=== PATIENT | female | born 1990 | race Caucasian/White ===

== ENCOUNTER 2020-09-05 18:57 | Emergency (ER) | payer OTHER, SELFPAY ==
[2020-09-05 19:11] VITALS: BP 111/60; PULSE 87; RESP 18; O2SAT 99; BMI 40.4
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
[2020-09-05 20:20] VITALS: BP 116/71; PULSE 87; RESP 18; O2SAT 95
[2020-09-05] MEDS: LIDOCAINE/PRILOCAINE 5 GM TOP (20:43)
[2020-09-05] MEDS: BACITRACIN OINT 0.9 GM PCKT 1 APPLIC TOP (20:44)
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
== END 2020-09-05 21:13 | disposition home or self-care (01) ==
PROVIDERS: Emergency Provider Nurse Practitioner Family
DX: T23.212A Burn of second degree of left thumb (nail), initial encounter (principal); X17.XXXA Contact with hot engines, machinery and tools, initial encounter
CPT/HCPCS: 99282

== ENCOUNTER 2025-11-07 18:01 | Emergency (ER) | payer OTHER, SELFPAY ==
[2025-11-07 18:11] VITALS: BP 133/87; PULSE 70; RESP 17; TEMP 36.1; O2SAT 98; BMI 39.4
[2025-11-07 18:50] LABS: Alanine Aminotransferase 82 IU/L (<35); Albumin 4.5 g/dL (3.5-5.0); Albumin Globulin Ratio 1.6 (1.0-2.8); Alkaline Phosphatase 113 U/L (38-126); Blood Urea Nitrogen 12 mg/dL (7-17); Calcium 9.3 mg/dL (8.4-10.2); Carbon Dioxide 28 mmol/L (22-32); Chloride 102 mmol/L (98-107); Estimated Glomerular Filt Rate > 60 mL/min (>60); Globulin 2.9 g/dL (1.7-4.1); Glucose 97 mg/dL (70-99); HEMOLYSIS < 15 (0-50); Lipase 127 U/L (23-300); Potassium 3.5 mmol/L (3.4-5.1); Sodium 138 mmol/L (137-145); Total Protein 7.4 g/dL (6.3-8.2)
[2025-11-07 18:53] LABS: Add Manual Diff / Slide Review NO; Hematocrit 39.7 % (36-46); Hemoglobin 13.4 g/dL (12.0-16.0); Lymphocytes Absolute Auto 2100 /uL (1100-4500); Mean Corpuscular HGB Conc 33.7 % (30-36); Mean Corpuscular Hemoglobin 28.9 PG (26-34); Mean Corpuscular Volume 85.6 fL (80-100); Platelet Count 221 X10^3/uL (150-400)
[2025-11-07 20:11] VITALS: BP 111/68; PULSE 85; O2SAT 98
[2025-11-07 21:17] VITALS: O2SAT 98
--- NOTE | 2025-11-07 23:20 | ED_ITS ---
HPI - Abdominal Pain General Chief Complaint: Abdominal Pain Stated Complaint: 4 wks pp, sharp abd pain, back pain Time Seen by Provider: 11/07/25 18:56 History of Present Illness HPI narrative: 35-year-old female now four weeks from vaginal delivery of term viable female infant, was standing this evening and had sudden onset of lower abdominal pain that radiates straight back. Contractions like sensation. No vaginal bleeding at that time. No fevers or chills. No chest pain shortness of breath, no palpitation or irregular heart rate fast heart rate sensation. No focal weakness to face arm or leg. No focal numbness to face arm or leg. She was able to remain standing, did not feel particularly weak in the knees at the time. Symptoms were transient, not relieved with any specific maneuver or medications. Related Data Home Medications ?Medication ?Instructions ?Recorded ?Confirmed vitamins with calcium 1 tab PO DAILY 02/25/25 07/15/25 no.72-iron 27 mg-folic acid 1 mg tablet (M- Plus) Allergies Allergy/AdvReac Type Severity Reaction Status Date / Time hydrocodone (From Lortab) AdvReac Intermediate Depression Verified 11/07/25 18:11 Patient History Medical History Exercise-induced asthma Facet arthropathy, lumbar Gallstone Herniated nucleus pulposus, C5-6 left Surgical History No pertinent past surgical history Social History Smoking Status: Never smoker Smoking Status: Never smoker alcohol intake frequency: 0-2 drinks per day Exam Narrative Exam Narrative: GENERAL: Well-developed patient, in mild distress. HEAD: Atraumatic. Normocephalic. EYES: Pupils equal round and reactive. Extraocular motions intact. No scleral icterus. No injection or drainage. ENT: Nose without bleeding, purulent drainage. Throat without erythema, tonsillar hypertrophy or exudate. Airway patent. NECK: Trachea midline. Non tender CARDIOVASCULAR: Regular rate and rhythm without murmurs, gallops, or rubs. RESPIRATORY: Clear to auscultation. Breath sounds equal bilaterally. No wheezes, rales, or rhonchi. GASTROINTESTINAL: Abdomen soft, non-tender, nondistended. EXTREMITIES: No edema or joint tenderness. BACK: Nontender without deformity or crepitance. No flank tenderness. NEURO: AOx3. Motor functions grossly nonfocal. SKIN: No rash or erythema of visible areas Initial Vital Signs Initial Vital Signs: Vital Signs Temperature 97.0 F L 11/07/25 18:11 Pulse Rate 70 11/07/25 18:11 Respiratory Rate 17 11/07/25 18:11 Blood Pressure 133/87 11/07/25 18:11 Pulse Oximetry 98 11/07/25 18:11 Oxygen Delivery Method Room Air 11/07/25 18:11 Course Orders Ordered: ED Orders 11/07/25 23:48 US pelvic complete Stat Discontinued Medications Ondansetron HCl (Ondansetron 4 Mg/2 Ml Inj) 4 mg IV NOW PRN PRN Reason: Nausea And Vomiting Ondansetron HCl (Ondansetron 4 Mg Odt) 4 mg PO NOW PRN PRN Reason: Nausea And Vomiting Vital Signs Vital signs: Vital Signs - 8 hr 11/07/25 20:11 11/07/25 20:11 11/07/25 21:17 Pulse Rate 85 Respiratory Rate Blood Pressure 111/68 Pulse Oximetry 98 98 Oxygen Delivery Method 11/07/25 23:45 11/07/25 23:45 11/07/25 23:49 Pulse Rate 79 79 Respiratory Rate 20 Blood Pressure 120/73 120/73 Pulse Oximetry 99 99 Oxygen Delivery Method Room Air 11/08/25 02:26 11/08/25 02:26 Pulse Rate 81 Respiratory Rate Blood Pressure 108/67 Pulse Oximetry 98 Oxygen Delivery Method MDM - Abdominal Pain Lab Data Attestation: I reviewed the patient's lab results. Lab results narrative: White blood cell count 6400, hemoglobin 13.4, platelets adequate. Glucose 97. Normal renal function, serum CO2, electrolytes. Mild transaminitis, with normal total bilirubin and alkaline phosphatase. Lipase normal. Urine hCG negative. Urine dip negative. 11/07/25 18:25 11/07/25 18:25 Labs: Lab Results 11/07/25 Range/Units 18:25 WBC 6.4 (4.5-11.0) X10^3/uL RBC 4.64 (4.0-5.2) X10^6/uL Hgb 13.4 (12.0-16.0) g/dL Hct 39.7 (36-46) % MCV 85.6 (80-100) fL MCH 28.9 (26-34) PG MCHC 33.7 (30-36) % RDW 13.9 (11.6-14.8) % Plt Count 221 (150-400) X10^3/uL Neut % (Auto) 57.9 (50-75) % Lymph % (Auto) 33.1 (25-40) % [place] % (Auto) 6.6 (3-14) % Eos % (Auto) 1.4 L (2-4) % Baso % (Auto) 1.0 (0-2) % Neut # (Auto) 3700 (9314-8536) /uL Lymph # (Auto) 2100 (7816-5494) /uL [place] # (Auto) 400 (0-900) /uL Eos # (Auto) 100 (0-450) /uL Baso # (Auto) 100 (0-100) /uL Sodium 138 (137-145) mmol/L Potassium 3.5 (3.4-5.1) mmol/L Chloride 102 (98-107) mmol/L Carbon Dioxide 28 (22-32) mmol/L BUN 12 (7-17) mg/dL Creatinine 0.69 (0.52-1.04) mg/dL Estimated GFR > 60 (>60) mL/min BUN/Creatinine Ratio 17.4 (6-22) Glucose 97 (70-99) mg/dL Calcium 9.3 (8.4-10.2) mg/dL Total Bilirubin 0.8 (0.2-1.3) mg/dL AST 48 H (14-36) IU/L ALT 82 H (<35) IU/L Alkaline Phosphatase 113 (38-126) U/L Total Protein 7.4 (6.3-8.2) g/dL Albumin 4.5 (3.5-5.0) g/dL Globulin 2.9 (1.7-4.1) g/dL Albumin/Globulin Ratio 1.6 (1.0-2.8) Lipase 127 (23-300) U/L HCG, Quant < 2.39 mIU/mL Point of care testing: Point of Care Testing Test Results Negative Urine Dip Bedside Urine Glucose Negative Bedside Urine Bilirubin - Negative Bedside Urine Ketone - Negative Urine Specific Cass 1.015 Bedside Urine Occult Blood - Negative Bedside Urine pH 6.0 Bedside Urine Protein - Negative Bedside Urine Urobilinogen - Negative Bedside Urine Nitrite - Negative Bedside Urine Leukocytes - Negative Esterase Imaging Data Ultrasound pelvis: Radiologist's Impression: [address] [address] Ultrasound Report Signed Patient: Ghazal Beltran MR#: [id number] : 1990 Acct:[id number] Age/Sex: 35 / F Date of Service: 11/07/25 Loc: ED Accession Number: [id number] Procedure: US pelvic complete Ordering Provider: Jr Rhodes MD PROCEDURE: US PELVIC COMPLETE INDICATIONS: lower abdom pain, now hvaing vaginal bleeding TECHNIQUE: Real-time scanning was performed of the pelvic organs, with image documentation. Additional endovaginal scanning was necessary due to incomplete visualization of the adnexal and endometrial structures by transabdominal scanning. COMPARISON: None. FINDINGS: Uterus: Uterus is anteverted and normal in size at 8.9 x 5.5 x 7.5 cm. The myometrium is homogeneous. The endometrium measures 6.7 mm combined thickness. No findings of retained products of conception in the endometrium. The cervix appears closed with small nabothian cyst present. Ovaries: The right ovary measures 1.4 x 3.3 x 1.7 cm, with a calculated ovarian volume of 3.7 cc. The left ovary measures 1.7 x 2.7 x 1.4 cm, with a calculated ovarian volume of 3.3 cc. The ovaries have a normal sonographic appearance. Less than 12 follicles can be seen in each ovary. No adnexal masses are seen. Other: No pathologic free abdominal or pelvic fluid. IMPRESSION: Normal pelvic ultrasound. We strive to produce accurate, complete, and clear reports of imaging services. To assist us in improving patient care, this report was composed using standard report templates and voice recognition software. Therefore, it may contain abnormal punctuation, insertions and/or omissions. Occasional wrong-word or sound-alike substitutions may occur. Though we review the report and make efforts to correct it, we do recommend that the report be read carefully in proper context to recognize any text inaccuracies. Dictated by: Catia Alex M.D. on 11/08/2025 at 1:38 Approved by: Catia Alex M.D. on 11/08/2025 at 1:40 MDM Narrative Medical decision making narrative: 35-year-old female 4 weeks from vaginal delivery it sounded like it went well, had lower abdominal pain acute onset while standing, radiation straight back, symptoms seemed to be resolved. Afebrile, sirs screen negative. No midline tenderness or flank area tenderness. Screening labs pending. Lab data: White blood cell count 6400, hemoglobin 13.4, platelets adequate. Glucose 97. Normal renal function, serum CO2, electrolytes. Mild transaminitis, with normal total bilirubin and alkaline phosphatase. Lipase normal. Urine hCG negative. Urine dip negative. Patient had some vaginal bleeding after lab draw, that seems to have stopped. We will check pelvic ultrasound. Pelvic ultrasound showed no acute changes. See radiology report. We discussed further advanced imaging such as CT scan abdomen and pelvis, declined for now. Follow up with PCP advised this next week if symptoms recur. Discharged home with family. Return precautions discussed. Discharge Plan Departure Patient Disposition: Home Clinical Impression: Abdominal pain Activity Restrictions/Additional Instructions: Lower abdominal pain acute onset 5:00 p.m. while standing cooking, radiation straight back at the time, sharp then increased, radiating toward the buttocks, resolved without specific treatment. History of passing-out episodes in association with pain. No passing out but has sensation that you might pass out tonight. Four weeks now, on complicated vaginal delivery at [facility] reported. You did have some light vaginal bleeding that started while your here in the emergency department. test negative. Ultrasound of the pelvis showed no acute changes. You had resolution of your symptoms without specific treatments. We did discuss additional advanced imaging in the might include CT abdomen and pelvis, hold for now. Recheck advised with your regular doctor early this next week. Continue taking your chronic medications for now. Return to this/nearest emergency department for any change worsening symptoms or any concerns prior. Prescriptions: No Action M-Krish Plus 27 mg iron- 1 mg tablet 1 tab PO DAILY Referrals: Miscellaneous,[facility] [Primary Care Provider, Medical] Stand Alone Forms: Patient Portal/API
--- NOTE | 2025-11-07 23:29 | PC.NURSE ---
Ambulatory to restroom without difficulty or assistance
[2025-11-07 23:45] VITALS: BP 120/73; PULSE 79; O2SAT 99
--- NOTE | 2025-11-07 23:48 | DI.US.S_ITS ---
PROCEDURE: US PELVIC COMPLETE INDICATIONS: lower abdom pain, now hvaing vaginal bleeding TECHNIQUE: Real-time scanning was performed of the pelvic organs, with image documentation. Additional endovaginal scanning was necessary due to incomplete visualization of the adnexal and endometrial structures by transabdominal scanning. COMPARISON: None. FINDINGS: Uterus: Uterus is anteverted and normal in size at 8.9 x 5.5 x 7.5 cm. The myometrium is homogeneous. The endometrium measures 6.7 mm combined thickness. No findings of retained products of conception in the endometrium. The cervix appears closed with small nabothian cyst present. Ovaries: The right ovary measures 1.4 x 3.3 x 1.7 cm, with a calculated ovarian volume of 3.7 cc. The left ovary measures 1.7 x 2.7 x 1.4 cm, with a calculated ovarian volume of 3.3 cc. The ovaries have a normal sonographic appearance. Less than 12 follicles can be seen in each ovary. No adnexal masses are seen. Other: No pathologic free abdominal or pelvic fluid. IMPRESSION: Normal pelvic ultrasound. We strive to produce accurate, complete, and clear reports of imaging services. To assist us in improving patient care, this report was composed using standard report templates and voice recognition software. Therefore, it may contain abnormal punctuation, insertions and/or omissions. Occasional wrong-word or sound-alike substitutions may occur. Though we review the report and make efforts to correct it, we do recommend that the report be read carefully in proper context to recognize any text inaccuracies. Dictated by: Catia Alex M.D. on 11/08/2025 at 1:38 Approved by: Catia Alex M.D. on 11/08/2025 at 1:40
[2025-11-07 23:49] VITALS: BP 120/73; PULSE 79; RESP 20; O2SAT 99
--- NOTE | 2025-11-07 23:52 | PC.NURSE ---
Pt sitting in ED stretcher breast feeding infant upon RN entry into exam room. No distress noted at this time. Pt engages appropriately with RN. States pain has now resolved but has new onset vag bleeding since pain began. Continued plan of care discussed. No further requests or concerns at this time. VS stable at this time. Call light within reach.
--- NOTE | 2025-11-08 00:16 | PC.NURSE ---
Ultrasound at bedside
[2025-11-08 00:35] LABS: HCG Quantitative /Beta subunit < 2.39 mIU/mL
--- NOTE | 2025-11-08 01:09 | PC.NURSE ---
Pt resting quietly with eyes closed, resps even and not labored. No distress noted at this time. Infant remains at bedside in car seat carrier.
[2025-11-08 02:26] VITALS: BP 108/67; PULSE 81; O2SAT 98
== END 2025-11-08 02:31 | disposition home or self-care (01) ==
PROVIDERS: Emergency Provider Emergency Medicine
DX: O99.893 Other specified diseases and conditions complicating puerperium (principal); R10.30 Lower abdominal pain, unspecified
CPT/HCPCS: 36415; 76830; 76856; 80053; 81003; 81025; 83690; 84702; 85025; 99283; 99284